=== PATIENT | female | born 1970 | race Caucasian/White ===

== ENCOUNTER → 2016-12-05 | Outpatient (CLI) | payer BC ==
--- NOTE | 2016-12-05 15:17 | US ---
HISTORY: Abdominal pain. Abnormal LFTs. Study: Right upper quadrant abdominal ultrasound Comparison: None. Technique: Multiple glass scale and color flow Doppler images of the right upper quadrant were obtaine d. Findings: The liver is normal in echotexture and size. No focal intraparenchymal mass or intrahepatic biliary ductal dilatation can be observed. Several tiny gallstones are seen in the gallbladder without evide nce for acute cholecystitis. The common bile duct is unremarkable measuring 3 millimeters. No peric holecystic fluid or gallbladder wall thickening can be observed. The CBD measures within normal limit s. The right kidney appears normal in size without focal parenchymal mass or nephrolithiasis. The ri ght kidney measurers 12 x 6 x 6 centimeters. No hydronephrosis or perirenal fluid can be observed. The pancreatic head and body are unremarkable. The pancreatic tail is largely obscured by overlying bowel gas. IMPRESSION: 1. Tiny gallstones in the gallbladder. Otherwise, unremarkable RUQ ultrasound exam. Reported By:
== END | disposition home or self-care (01) | DRG 443 ==
LOC: RAD 08:48
PROVIDERS: ATTEND Obstetrics & Gynecology Obstetrics
DX: R94.5 Abnormal results of liver function studies (principal); K80.20 Calculus of gallbladder without cholecystitis without obstruction
CPT/HCPCS: 76705